=== PATIENT | female | born 1930 | race Caucasian/White ===

== ENCOUNTER 2019-08-16 20:42 | Inpatient (IN) | payer MEDICARE ==
[~2019-08-16] VITALS: Ht 165.1 cm; Wt 59.0 kg
[2019-08-16] MEDS ORDERED: mag hydrox/Alum hydrox/simeth 30ml oral suspension PO PRN (21:30)
[2019-08-16] MEDS ORDERED: potassium Cl 20 mEq SR tablet PO PRN (21:30)
[2019-08-16] MEDS ORDERED: magnesium hydroxide 30ml (MOM) UD suspension PO PRN (21:30)
[2019-08-16] MEDS ORDERED: ondansetron/PF 4mg/2ml inj IV PRN (21:30)
[2019-08-16] MEDS ORDERED: magnesium 4gm in 100ml NS 100 ML IV PRN (21:30)
[2019-08-16] MEDS ORDERED: acetaminophen 325mg tablet PO PRN ×2 (21:30)
[2019-08-16] MEDS ORDERED: HYDROcodone/acetaminophen 5mg/325mg tablet PO PRN (21:30)
[2019-08-16] MEDS ORDERED: potassium CL 10mEq/100ml bag 100 ML IV PRN ×2 (21:30)
[2019-08-16] MEDS ORDERED: morphine 2 MG/ML inj. syringe IV PRN ×2 (21:30)
[2019-08-16] MEDS ORDERED: magnesium Cl slow-release 64mg tablet PO PRN (21:30)
[2019-08-16] MEDS ORDERED: magnesium 2GM in 50ml NS 50 ML IV PRN (21:30)
[2019-08-16] MEDS ORDERED: LEVO112T5 PO (21:46)
[2019-08-16 21:50] LABS: ALANINE AMINOTRANSFERASE 15 U/L (12-78); ALBUMIN 2.9 G/DL (3.4-5.0); ALBUMIN/GLOBULIN RATIO 1.1 (1.1-1.5); ALKALINE PHOSPHATASE 44 IU/L (46-116); ANION GAP 10 (8-16); ASPARTATE AMINO TRANSFERASE 19 U/L (10-37); BILIRUBIN,TOTAL 0.3 MG/DL (0.1-1.0); BLOOD UREA NITROGEN 17 MG/DL (7-18); CALCIUM 7.8 MG/DL (8.5-10.1); CHLORIDE 107 MMOL/L (99-107); CREATININE 0.68 MG/DL (0.40-0.90); GLUCOSE 116 MG/DL (70-104); POTASSIUM 3.5 MMOL/L (3.5-5.1); SODIUM 144 MMOL/L (135-145); TOTAL CARBON DIOXIDE 27.1 MMOL/L (24-32); TOTAL PROTEIN 5.6 G/DL (6.4-8.2); eGFR 82 ML/MIN
[2019-08-16 21:52] LABS: BASOPHILS % (AUTO) 0.4 % (0-1); EOSINOPHILS % (AUTO) 0.1 % (0-6); HEMATOCRIT 31.2 % (35.0-45.0); HEMOGLOBIN 10.7 g/dl (12.0-16.0); LYMPHOCYTES # (AUTO) 0.4 X10'3 (1.1-4.8); LYMPHOCYTES % (AUTO) 8.4 % (21-51); MEAN CORPUSCULAR HEMOGLOBIN 30.3 PG (27.0-31.0); MEAN CORPUSCULAR HGB CONC 34.2 g/dL (33.0-36.5); MEAN CORPUSCULAR VOLUME 88.7 FL (78-98); MONOCYTES # (AUTO) 0.3 X10'3 (0-0.9); MONOCYTES % (AUTO) 6.9 % (2-12); NEUTROPHILS # (AUTO) 3.8 X10'3 (1.8-7.7); NEUTROPHILS % (AUTO) 84.2 % (42-75); PLATELET COUNT 253 X10'3 (140-440); RED BLOOD COUNT 3.52 X10'6 (4.20-5.60); RED CELL DISTRIBUTION WIDTH 15.1 % (11.5-14.5); WHITE BLOOD COUNT 4.5 X10'3 (4.5-11.0)
[2019-08-16] MEDS: normal saline 1000ml 1,000 ML IV SCH ×3 (21:53→22:55)
--- NOTE | 2019-08-16 22:45 | NUR ---
While doing two RN skin assessment I noticed that patient had small brown stool in pull up. Addendum: 08/17/19 at 0241 by Gregor Simms RN Amended: Links added.
[2019-08-16 23:40] VITALS: BP 119/47
[2019-08-17 04:55] LABS: BASOPHILS % (AUTO) 0.6 % (0-1); EOSINOPHILS % (AUTO) 0.9 % (0-6); HEMATOCRIT 32.7 % (35.0-45.0); HEMOGLOBIN 11.3 g/dl (12.0-16.0); LYMPHOCYTES # (AUTO) 0.8 X10'3 (1.1-4.8); LYMPHOCYTES % (AUTO) 17.3 % (21-51); MEAN CORPUSCULAR HEMOGLOBIN 30.4 PG (27.0-31.0); MEAN CORPUSCULAR HGB CONC 34.4 g/dL (33.0-36.5); MEAN CORPUSCULAR VOLUME 88.4 FL (78-98); MEAN PLATELET VOLUME 7.1 FL (7.4-10.4); MONOCYTES # (AUTO) 0.5 X10'3 (0-0.9); MONOCYTES % (AUTO) 11.9 % (2-12); NEUTROPHILS % (AUTO) 69.3 % (42-75); PLATELET COUNT 259 X10'3 (140-440); RED BLOOD COUNT 3.71 X10'6 (4.20-5.60); RED CELL DISTRIBUTION WIDTH 15.2 % (11.5-14.5); WHITE BLOOD COUNT 4.4 X10'3 (4.5-11.0)
[2019-08-17 05:20] LABS: ALBUMIN 2.8 G/DL (3.4-5.0); ANION GAP 8 (8-16); CALCIUM 7.7 MG/DL (8.5-10.1); CHLORIDE 108 MMOL/L (99-107); CREATININE 0.69 MG/DL (0.40-0.90); GLUCOSE 94 MG/DL (70-104); MAGNESIUM 2.2 MG/DL (1.5-2.4); POTASSIUM 3.5 MMOL/L (3.5-5.1); SODIUM 142 MMOL/L (135-145); TOTAL CARBON DIOXIDE 25.8 MMOL/L (24-32); eGFR 80 ML/MIN
[2019-08-17 05:24] LABS: BLOOD UREA NITROGEN 15 MG/DL (7-18); BUN/CREATININE RATIO 21.7 (6.6-38.0)
--- NOTE | 2019-08-17 06:12 | NUR ---
Patient in room [facility]. I have received report from Gregor BARTON and had the opportunity to ask questions and assume patient care.
[2019-08-17 06:25] VITALS: BP 114/51
--- NOTE | 2019-08-17 07:05 | NUR ---
Problems reprioritized. Patient report given, questions answered & plan of care reviewed with MICK Henderson.
[2019-08-17] MEDS: normal saline 1000ml 1,000 ML IV SCH ×2 (07:34→17:16)
[2019-08-17] MEDS: pantoprazole 40 MG vial IV SCH (07:35)
[2019-08-17] MEDS: levoTHYROXINE 112mcg tablet PO SCH (07:35)
[2019-08-17] MEDS: enoxaparin 40mg/0.4ml syringe SQ SCH (07:36)
[2019-08-17 08:00] VITALS: BP 114/51
[2019-08-17] MEDS: K and/or MAG REPLACEMENT MC SCH (08:00)
[2019-08-17] MEDS ORDERED: PEG 3350/Na sulf,bicarb,Cl/KCl oral sol 4 liter bottle PO ONE (08:40)
[2019-08-17] MEDS ORDERED: PEG 3350/Na sulf,bicarb,Cl/KCl oral sol 4 liter bottle PO SCH (08:40)
[2019-08-17 11:00] VITALS: BP 141/59
--- NOTE | 2019-08-17 14:37 | NUR ---
Malnutrition Consult: Pt admit w/ constipation/obstipation 6 days prior to admit. Pt had large BM 08/16 per EMR and advanced to clear liquids from NPO today. Pt hx dementia currently AOx2 w/ pt stated wt, no prior admits for wt comparison, no edema, and no strength assessment at this time. Pending PO clear liquid diet. Current wt loss pt reported though AOx2. At this time pt does not meet minimum malnutrition criteria. Will continue to monitor. Addendum: 08/17/19 at [address] Amended: Links added.
--- NOTE | 2019-08-17 17:31 | NUR ---
patient seen by DR Rio Raymond ordered for possible colonoscopy in next two days or when patient has clear stool. Granddaughter in room, wanting to stay night with grandmother. Charge nurse garrick approved. patient not clear yet multiple BM, will continue to monitor. Pleasantly confused.
[2019-08-17 18:00] VITALS: BP 132/40
--- NOTE | 2019-08-17 18:43 | NUR ---
Problems reprioritized. Patient report given, questions answered & plan of care reviewed with Gregor BARTON.
--- NOTE | 2019-08-17 18:45 | NUR ---
Patient in room [facility]. I have received report from MICK Henderson and had the opportunity to ask questions and assume patient care.
[2019-08-18] VITALS: BP 83/64
[2019-08-18] MEDS: normal saline 1000ml 1,000 ML IV SCH ×2 (02:30→12:48)
[2019-08-18 06:00] LABS: BASOPHILS % (AUTO) 0.9 % (0-1); EOSINOPHILS # (AUTO) 0.1 X10'3 (0-0.9); EOSINOPHILS % (AUTO) 1.3 % (0-6); HEMATOCRIT 35.4 % (35.0-45.0); HEMOGLOBIN 12.1 g/dl (12.0-16.0); LYMPHOCYTES # (AUTO) 0.6 X10'3 (1.1-4.8); LYMPHOCYTES % (AUTO) 15.2 % (21-51); MEAN CORPUSCULAR HEMOGLOBIN 30.2 PG (27.0-31.0); MEAN CORPUSCULAR HGB CONC 34.2 g/dL (33.0-36.5); MEAN CORPUSCULAR VOLUME 88.5 FL (78-98); MEAN PLATELET VOLUME 7.1 FL (7.4-10.4); MONOCYTES # (AUTO) 0.5 X10'3 (0-0.9); MONOCYTES % (AUTO) 12.2 % (2-12); NEUTROPHILS # (AUTO) 2.8 X10'3 (1.8-7.7); NEUTROPHILS % (AUTO) 70.4 % (42-75); PLATELET COUNT 248 X10'3 (140-440); RED CELL DISTRIBUTION WIDTH 15.6 % (11.5-14.5); WHITE BLOOD COUNT 3.9 X10'3 (4.5-11.0)
--- NOTE | 2019-08-18 06:36 | NUR ---
Problems reprioritized. Patient report given, questions answered & plan of care reviewed with MICK Sánchez.
[2019-08-18 06:45] LABS: ALBUMIN 2.8 G/DL (3.4-5.0); ANION GAP 10 (8-16); BLOOD UREA NITROGEN 10 MG/DL (7-18); BUN/CREATININE RATIO 14.1 (6.6-38.0); CALCIUM 7.7 MG/DL (8.5-10.1); CHLORIDE 106 MMOL/L (99-107); CREATININE 0.71 MG/DL (0.40-0.90); GLUCOSE 84 MG/DL (70-104); MAGNESIUM 1.9 MG/DL (1.5-2.4); POTASSIUM 3.5 MMOL/L (3.5-5.1); SODIUM 142 MMOL/L (135-145); TOTAL CARBON DIOXIDE 26.2 MMOL/L (24-32); eGFR 78 ML/MIN
[2019-08-18] MEDS: K and/or MAG REPLACEMENT MC SCH (06:53)
[2019-08-18] MEDS: pantoprazole 40 MG vial IV SCH (07:42)
[2019-08-18] MEDS: enoxaparin 40mg/0.4ml syringe SQ SCH (07:42)
[2019-08-18] MEDS: levoTHYROXINE 112mcg tablet PO SCH (07:42)
[2019-08-18 08:00] VITALS: BP 122/58
[2019-08-18 11:08] VITALS: BP 126/57
--- NOTE | 2019-08-18 18:05 | NUR ---
Patient in room [facility]. I have received report from Princess BARTON and had the opportunity to ask questions and assume patient care.
--- NOTE | 2019-08-18 18:19 | NUR ---
Problems reprioritized. Patient report given, questions answered & plan of care reviewed with JENNIFER BARTON.
[2019-08-18 20:00] VITALS: BP 138/48
[2019-08-18] MEDS: diatr meglu/diatrizoate 30ml oral sol.-(3 dose) bottle PO SCH (20:20)
[2019-08-19] VITALS: BP 121/49
[2019-08-19 06:17] LABS: BASOPHILS % (AUTO) 0.7 % (0-1); EOSINOPHILS # (AUTO) 0.1 X10'3 (0-0.9); EOSINOPHILS % (AUTO) 4.6 % (0-6); HEMATOCRIT 32.3 % (35.0-45.0); HEMOGLOBIN 11.1 g/dl (12.0-16.0); LYMPHOCYTES # (AUTO) 0.4 X10'3 (1.1-4.8); LYMPHOCYTES % (AUTO) 14.7 % (21-51); MEAN CORPUSCULAR HEMOGLOBIN 30.2 PG (27.0-31.0); MEAN CORPUSCULAR HGB CONC 34.3 g/dL (33.0-36.5); MONOCYTES # (AUTO) 0.4 X10'3 (0-0.9); MONOCYTES % (AUTO) 15.2 % (2-12); NEUTROPHILS # (AUTO) 1.9 X10'3 (1.8-7.7); NEUTROPHILS % (AUTO) 64.8 % (42-75); PLATELET COUNT 224 X10'3 (140-440); RED BLOOD COUNT 3.67 X10'6 (4.20-5.60); RED CELL DISTRIBUTION WIDTH 15.1 % (11.5-14.5); WHITE BLOOD COUNT 2.9 X10'3 (4.5-11.0)
[2019-08-19 06:20] LABS: ALBUMIN 2.7 G/DL (3.4-5.0); ANION GAP 8 (8-16); BLOOD UREA NITROGEN 3 MG/DL (7-18); BUN/CREATININE RATIO 5.1 (6.6-38.0); CALCIUM 7.7 MG/DL (8.5-10.1); CHLORIDE 109 MMOL/L (99-107); CREATININE 0.59 MG/DL (0.40-0.90); GLUCOSE 96 MG/DL (70-104); MAGNESIUM 1.6 MG/DL (1.5-2.4); SODIUM 144 MMOL/L (135-145); eGFR > 90 ML/MIN
--- NOTE | 2019-08-19 06:21 | NUR ---
Problems reprioritized. Patient report given, questions answered & plan of care reviewed with Princess BARTON.
[2019-08-19] MEDS: enoxaparin 40mg/0.4ml syringe SQ SCH (06:24)
[2019-08-19 06:28] LABS: POTASSIUM 2.7 MMOL/L (3.5-5.1)
--- NOTE | 2019-08-19 06:45 | NUR ---
Patient in room [facility]. I have received report from cynthia diaz and had the opportunity to ask questions and assume patient care.
--- NOTE | 2019-08-19 06:51 | NUR ---
PAGER ID: [phone] MESSAGE: YARI Mckenna . CRITICAL K 2.7. WILL REPLACE PER PROTOCOL. SURGICAL [facility] [id number]
[2019-08-19 07:00] VITALS: BP 132/57
[2019-08-19] MEDS: levoTHYROXINE 112mcg tablet PO SCH (07:04)
[2019-08-19] MEDS: pantoprazole 40mg Tablet.DR PO SCH (07:11)
[2019-08-19] MEDS: potassium Cl 20 mEq SR tablet PO PRN ×3 (07:12→20:04)
[2019-08-19] MEDS: diatr meglu/diatrizoate 30ml oral sol.-(3 dose) bottle PO SCH ×2 (07:12→10:48)
[2019-08-19] MEDS: K and/or MAG REPLACEMENT MC SCH (07:19)
[2019-08-19 07:44] LABS: ANISOCYTOSIS 1+; PLATELET ESTIMATE NORMAL; POIKILOCYTOSIS 1+; TOTAL CELLS COUNTED 100
[2019-08-19] MEDS ORDERED: iohexol 300mg/ml 100ml inj. ONE (10:47)
[2019-08-19 11:00] VITALS: BP 153/62
--- NOTE | 2019-08-19 18:17 | NUR ---
Problems reprioritized. Patient report given, questions answered & plan of care reviewed with JENNIFER BARTON.
[2019-08-19] MEDS: normal saline 1000ml 1,000 ML IV SCH (19:27)
[2019-08-19 20:00] VITALS: BP 113/52
[2019-08-20] MEDS: normal saline 1000ml 1,000 ML IV SCH (05:27)
[2019-08-20 06:00] VITALS: BP 139/57
[2019-08-20 06:07] LABS: BASOPHILS % (AUTO) 0.8 % (0-1); EOSINOPHILS # (AUTO) 0.2 X10'3 (0-0.9); EOSINOPHILS % (AUTO) 5.3 % (0-6); HEMATOCRIT 30.9 % (35.0-45.0); HEMOGLOBIN 10.7 g/dl (12.0-16.0); LYMPHOCYTES # (AUTO) 0.5 X10'3 (1.1-4.8); LYMPHOCYTES % (AUTO) 16.6 % (21-51); MEAN CORPUSCULAR HEMOGLOBIN 30.4 PG (27.0-31.0); MEAN CORPUSCULAR HGB CONC 34.6 g/dL (33.0-36.5); MEAN PLATELET VOLUME 7.1 FL (7.4-10.4); MONOCYTES # (AUTO) 0.5 X10'3 (0-0.9); MONOCYTES % (AUTO) 14.7 % (2-12); NEUTROPHILS % (AUTO) 62.6 % (42-75); PLATELET COUNT 225 X10'3 (140-440); RED BLOOD COUNT 3.52 X10'6 (4.20-5.60); RED CELL DISTRIBUTION WIDTH 15.5 % (11.5-14.5); WHITE BLOOD COUNT 3.2 X10'3 (4.5-11.0)
--- NOTE | 2019-08-20 06:16 | NUR ---
Problems reprioritized. Patient report given, questions answered & plan of care reviewed with Loreto BARTON.
[2019-08-20 06:55] LABS: ALBUMIN 2.4 G/DL (3.4-5.0); ANION GAP 6 (8-16); BLOOD UREA NITROGEN 3 MG/DL (7-18); BUN/CREATININE RATIO 4.3 (6.6-38.0); CALCIUM 7.9 MG/DL (8.5-10.1); CHLORIDE 110 MMOL/L (99-107); GLUCOSE 99 MG/DL (70-104); MAGNESIUM 1.6 MG/DL (1.5-2.4); POTASSIUM 3.7 MMOL/L (3.5-5.1); SODIUM 144 MMOL/L (135-145); TOTAL CARBON DIOXIDE 27.9 MMOL/L (24-32); eGFR 79 ML/MIN
[2019-08-20] MEDS: K and/or MAG REPLACEMENT MC SCH (08:00)
[2019-08-20] MEDS: pantoprazole 40mg Tablet.DR PO SCH (08:05)
[2019-08-20] MEDS: levoTHYROXINE 112mcg tablet PO SCH (08:05)
[2019-08-20] MEDS: enoxaparin 40mg/0.4ml syringe SQ SCH (08:06)
--- NOTE | 2019-08-20 10:47 | NUR ---
Patient in room [facility]. I have received report from Tre and had the opportunity to ask questions and assume patient care.
[2019-08-20 11:00] VITALS: BP 150/73
[2019-08-20] MEDS ORDERED: POLY17PO10 PO (11:12)
--- NOTE | 2019-08-20 11:54 | NUR ---
IV dc'd. Script for miralax called in to [facility] in [place]. Instructed to follow up with oncologist on Aug 24 as scheduled, and to consume a high fiber diet. Pt discharged with daughter via wc.
== END 2019-08-20 11:54 | disposition home or self-care (01) | DRG 395 ==
LOC: ER 20:43 → ED HOLD 22:19 → CMPBEDREQ 22:25 → SUR 3N 22:30
PROVIDERS: ADMIT Hospitalist; ATTEND Family Medicine
PROC: BW211ZZ Computerized Tomography (CT Scan) of Abdomen and Pelvis using Low Osmolar Contrast (ICD-10-PCS; principal; 2019-08-19)
DX: K59.31 Toxic megacolon (principal); E03.9 Hypothyroidism, unspecified; F03.90 Unspecified dementia, unspecified severity, without behavioral disturbance, psychotic disturbance, mood disturbance, and anxiety; Z85.048 Personal history of other malignant neoplasm of rectum, rectosigmoid junction, and anus; Z85.038 Personal history of other malignant neoplasm of large intestine; Z92.21 Personal history of antineoplastic chemotherapy; Z92.3 Personal history of irradiation; Z79.890 Hormone replacement therapy; E87.6 Hypokalemia
CPT/HCPCS: 36415; 74177; 80048; 80053; 83735; 84132; 84443; 85025; 87081; 99285; C9113; G0378; J1650; J2405; J7030; Q9963; Q9967